=== PATIENT | female | born 1985 | race Caucasian/White ===

== ENCOUNTER 2017-03-17 06:26 | Observation (INO) | payer OTHER ==
[~2017-03-17] VITALS: Ht 149.9 cm; Wt 63.2 kg
[2017-03-17 08:07] LABS: HEMOGLOBIN 12.1 gm/dl (12.3-15.3); RED BLOOD COUNT 4.43 M/UL (4.00-5.10); WHITE BLOOD COUNT 8.6 K/UL (4.5-11.0)
[2017-03-17 08:28] LABS: BUN/CREATININE RATIO 12 (0-10)
[2017-03-17] MEDS ORDERED: ZOLOFT50 MG PO (09:54)
[2017-03-18 06:58] LABS: HEMOGLOBIN 12.9 gm/dl (12.3-15.3); RED BLOOD COUNT 4.68 M/UL (4.00-5.10)
[2017-03-18 07:09] LABS: BUN/CREATININE RATIO 15 (0-10)
--- NOTE | 2017-03-18 07:11 | NUR ---
03/18/17 0710 - SPOKE WITH BAIRON HENRIQUEZ REGARDING PT'S VANCOMYOCIN. I RELAYED THAT THE PT HAD RECEIVED HIS DOSE LATE. MARTINEZ ADVISED TO NOT GIVE THE 0600 DOSE AT THIS TIME SINCE THE VANCOMYOCIN TROUGH IS STILL PENDING AND THAT SHE WILL PROVIDE FURTHER ORDERS LATER, WHEN IT IS AVAILABLE.
[2017-03-18] MEDS ORDERED: BACTRIM DS TAB1 EACH PO (10:20)
== END 2017-03-18 09:15 | disposition home or self-care (01) ==
LOC: ER1 06:26 → ZEROF 09:44 → M/S 20:18
PROVIDERS: Emergency Medicine; ADMIT Internal Medicine
DX: E86.0 Dehydration (principal); I95.9 Hypotension, unspecified; R11.2 Nausea with vomiting, unspecified; N39.0 Urinary tract infection, site not specified; B96.89 Other specified bacterial agents as the cause of diseases classified elsewhere; B19.20 Unspecified viral hepatitis C without hepatic coma; F17.210 Nicotine dependence, cigarettes, uncomplicated; Z79.899 Other long term (current) drug therapy
CPT/HCPCS: 36415; 71010; 80048; 80053; 81001; 82550; 82553; 83605; 83735; 83874; 84484; 84703; 85025; 85379; 87040; 87077; 87086; 87186; 93005; 96361; 96365; 99285; G0378; J0696; J7030; J7050; Q0162